=== PATIENT | male | born 1985 | race Caucasian/White ===

== ENCOUNTER 2022-10-12 22:07 | Emergency (ER) | payer OTHER ==
[~2022-10-12] VITALS: Ht 167.6 cm; Wt 90.0 kg
[2022-10-12 23:23] LABS: BASOPHILS % 1.2 % (0.0-2.0); EOSINOPHILS % 1.2 % (0.0-5.0); HEMATOCRIT. 44.7 % (42.0-52.0); HEMOGLOBIN. 15.5 g/dL (14.0-18.0); LYMPHOCYTES % 39.8 % (20.0-50.0); MEAN CORPUSCULAR VOLUME 89.2 fL (80.0-94.0); MEAN PLATELET VOLUME 6.8 fl (7.4-10.4); MONOCYTES % 4.9 % (2.0-8.0); NEUTROPHILS % 52.9 % (40.0-76.0); PLATELET 401 x1000/uL (130-400); RED BLOOD CELL COUNT 5.01 mill/uL (4.7-6.1); RED CELL DISTRIBUTION WIDTH 13.2 % (11.6-14.6)
[2022-10-12 23:28] LABS: CHLORIDE 111 mEq/L (98-107)
[2022-10-12 23:38] LABS: ETHANOL BLOOD 215 mg/dL
[2022-10-13] MEDS ORDERED: KETOROLAC 15MG/ML VIAL IV ONE (01:30)
[2022-10-13] MEDS ORDERED: IBUP-2029 MT (03:32)
[2022-10-13 03:54] VITALS: BP 102/51
== END 2022-10-13 05:00 | disposition home or self-care (01) ==
LOC: ER 22:07
DX: F10.129 Alcohol abuse with intoxication, unspecified (principal); Y90.7 Blood alcohol level of 200-239 mg/100 ml; M25.571 Pain in right ankle and joints of right foot; S93.491A Sprain of other ligament of right ankle, initial encounter; J32.1 Chronic frontal sinusitis; R00.0 Tachycardia, unspecified; V43.52XA Car driver injured in collision with other type car in traffic accident, initial encounter; Y93.89 Activity, other specified; Y92.410 Unspecified street and highway as the place of occurrence of the external cause; Z02.79 Encounter for issue of other medical certificate
CPT/HCPCS: 36415; 70450; 71045; 72170; 73610; 73630; 80053; 80320; 83690; 84484; 85025; 93005; 96374; 99285; J1885; G0480